=== PATIENT | male | born 1965 | race Caucasian/White ===

== ENCOUNTER 2016-06-02 11:37 | Day surgery (SDC) | payer MEDICARE ==
[~2016-06-02] VITALS: Ht 177.8 cm; Wt 93.0 kg
[~2016-06-02 11:37] MED LIST: 0.9% Sodium Chloride 1,000 ML IV SCH; ASPI-973 PO; ERGO2000 PO; LEVO100T45 PO; LIT300 PO; LITH600C PO; LOSA1TAB70 PO; MULT-666 PO; OMEP40CA36 PO; Sodium Chloride LOK Flush 10 mL Syringe IV PRN; fentaNYL-PF 50 mCg/mL 2 mL Inj IVPUSH PRN
[2016-06-02 12:33] VITALS: BP 133/93; PULSE 48; RESP 16; O2SAT 98
[2016-06-02] MEDS ORDERED: AMLO5TAB2 PO (12:43)
[2016-06-02] MEDS: 0.9% Sodium Chloride 1,000 ML IV SCH ×2 (13:09→13:17)
--- NOTE | 2016-06-02 13:25 | PCM.ENDCOL ---
Colonoscopy Date of Service: Jun 02, 2016 Physician Vincent Tran MD Pre Procedure Diagnosis: Screening Post Procedure Dx & Findings: Polyp hemorrhoids poor prep Procedure Colonoscopy PROCEDURE IN DETAIL: Prep poor prep After unremarkable rectal examination the Olympus video colonoscope was inserted patient's anal canal and was advanced to cecum. Landmarks were identified including the ileocecal valve and appendiceal orifice. Scope was withdrawn systematically. Visualized colonic mucosa showed healthy shiny mucosa with normal healthy-appearing vasculature. In the rectum there was a 3 mm polyp which appeared to be adenomatous. This was resected completely using cold snare. In the rectum retroflexion was done which showed hemorrhoids. Anal canal was inspected carefully on the way out and hemorrhoids noted. Impression Polyp 1 status post complete removal Poor prep Hemorrhoids Recommendation Repeat colonoscopy 3-6 months with 2 day prep and shepherd prep. He did not split the prep. Presedation Assessment Risks and Benefits Informed consent was obtained from the patient after all risks and benefits including but not limited to drug reaction, infection, pain, bleeding, perforation, as well as alternatives were discussed. Patient monitoring Continuous pulse oximetry, cardiac monitoring, blood pressure monitoring, IV access, and oxygen at 2L per nasal cannula. Periprocedural Fentanyl: Fentanyl 75mcg Incrementally Midazolam: Midazolam 3mg Incrementally Complications There were no periprocedural complications identified. Post Procedure Plan Post Procedure Recommendations 1. Restrict activities today. 2. Resume normal activities in the morning. 3. Resume medications. 4. Patient informed of normal post procedure side effects as bloating, drowsiness, blood streaking in the stool. 5. average risk CRCS. If colon polyps come back as: -Hyperplastic- can repeat colonoscopy in 10 years -Tubular adenoma- repeat colonoscopy in 5 years -Tubulovillous/villous adenoma- repeat colonoscopy in 3 years -If any dysplasia- return to clinic as soon as possible 6. Please don't hesitate to call me with any questions. Vincent Tran MD Jun 02, 2016 13:25
[2016-06-02 13:26] VITALS: BP 120/84; PULSE 66; RESP 12; O2SAT 97
[2016-06-02 13:39] VITALS: BP 131/74; PULSE 58; RESP 12; O2SAT 95
[2016-06-02 13:49] VITALS: BP 129/80; PULSE 64; RESP 14; O2SAT 96
--- NOTE | 2016-06-05 10:47 | PATH ---
SURGICAL PATHOLOGY Attending Physician:Vincent Tran M.D. CASE STATUS: Signed Out PATIENT NAME: KELLI YOON PID: [id number] : 1965 DATE COLLECTED:06/02/2016 19:35 SPECIMEN: Rectum, Biopsy CLINICAL HISTORY: 1). RECTAL POLYP FINAL DIAGNOSIS: 1.RECTAL POLYP: TUBULAR ADENOMA. ICD10 CODE D12.8 GROSS DESCRIPTION: The specimen is received in one formalin filled container labeled with the patient's name, sublabeled "rectal polyp" and consists of a 0.4 x 0.3 x 0.3 CM portion of tissue which is entirely submitted in one cassette. 06/02/2016 DAC MICRO DESCRIPTION: See diagnosis. ICD-9 CODES: CPT CODES: 1: 97247 Electronically Signed Out Piotr Prajapati MD [facility] Pathology [facility] [address], [place] [address] Technical component performed at [facility], [address] [place] [address] Ave[address], [place], [address]
== END 2016-06-02 23:59 | disposition home or self-care (01) ==
LOC: END 11:37
PROVIDERS: ATTEND Internal Medicine
DX: Z12.11 Encounter for screening for malignant neoplasm of colon (principal); D12.8 Benign neoplasm of rectum; K64.9 Unspecified hemorrhoids; I10 Essential (primary) hypertension; E78.5 Hyperlipidemia, unspecified; F30.9 Manic episode, unspecified; E03.9 Hypothyroidism, unspecified; E55.9 Vitamin D deficiency, unspecified; R07.89 Other chest pain; K21.9 Gastro-esophageal reflux disease without esophagitis; R06.83 Snoring; R71.8 Other abnormality of red blood cells; Z79.82 Long term (current) use of aspirin; Z79.899 Other long term (current) drug therapy
CPT/HCPCS: 45385; G0500; J7030

== ENCOUNTER → 2016-10-09 | Day surgery (SDC) | payer MEDICARE ==
[~2016-10-09] VITALS: Ht 177.8 cm; Wt 90.7 kg
[~2016-10-09] MED LIST changes: +AMLO5TAB2 PO; +CHOL200047 PO; -ERGO2000 PO; +NAPR250T PO; -OMEP40CA36 PO; +VIT1TABL83 PO
[2016-10-09 12:25] VITALS: BP 123/69; PULSE 61; RESP 12; O2SAT 97
--- NOTE | 2016-10-09 13:35 | PCM.ENDCOL ---
Colonoscopy Date of Service: Oct 09, 2016 Physician Vincent Tran MD Pre Procedure Diagnosis: History of polyps Post Procedure Dx & Findings: Colon polyp hemorrhoids Procedure Colonoscopy PROCEDURE IN DETAIL: Prep fair Withdrawal time 16 minutes After unremarkable rectal examination the Olympus video colonoscope was inserted patient's anal canal and was advanced to cecum. Landmarks were identified including the ileocecal valve and appendiceal orifice. Scope was withdrawn systematically. Visualized colonic mucosa showed healthy shiny mucosa with normal healthy-appearing vasculature. In the rectum there was a 1 mm polyp which was removed completely using cold forceps. In the rectum retroflexion was done which showed hemorrhoids. Anal canal was inspected carefully on the way out and hemorrhoids noted. Impression Polyp 1 status post complete removal Fair prep Hemorrhoids Recommendation Repeat colonoscopy in 2 years. 2 weeks of low residual diet 2 days of clear liquid diet and shepherd prep Presedation Assessment Risks and Benefits Informed consent was obtained from the patient after all risks and benefits including but not limited to drug reaction, infection, pain, bleeding, perforation, as well as alternatives were discussed. Patient monitoring Continuous pulse oximetry, cardiac monitoring, blood pressure monitoring, IV access, and oxygen at 2L per nasal cannula. Periprocedural Fentanyl: Fentanyl 100mcg Incrementally Midazolam: Midazolam 5mg Incrementally Complications There were no periprocedural complications identified. Post Procedure Plan Post Procedure Recommendations 1. Restrict activities today. 2. Resume normal activities in the morning. 3. Resume medications. 4. Patient informed of normal post procedure side effects as bloating, drowsiness, blood streaking in the stool. 5. average risk CRCS. If colon polyps come back as: -Hyperplastic- can repeat colonoscopy in 10 years -Tubular adenoma- repeat colonoscopy in 5 years -Tubulovillous/villous adenoma- repeat colonoscopy in 3 years -If any dysplasia- return to clinic as soon as possible 6. Please don't hesitate to call me with any questions. Vincent Tran MD Oct 09, 2016 13:35
[2016-10-09 13:37] VITALS: BP 114/73; PULSE 55; RESP 16; O2SAT 98
[2016-10-09 13:47] VITALS: BP 112/69; PULSE 62; RESP 16; O2SAT 98
[2016-10-09 13:57] VITALS: BP 129/90; PULSE 59; RESP 16; O2SAT 98
--- NOTE | 2016-10-12 18:35 | PATH ---
SURGICAL PATHOLOGY Attending Physician:Vincent Tran M.D. CASE STATUS: Signed Out PATIENT NAME: KELLI YOON PID: [id number] : 1965 DATE COLLECTED:10/09/2016 00:00 SPECIMEN: Rectum, Biopsy CLINICAL HISTORY: 1). RECTAL POLYP FINAL DIAGNOSIS: 1.RECTAL POLYP, BIOPSY: TUBULAR ADENOMA. ICD10 D12.8 GROSS DESCRIPTION: The specimen is received in one formalin filled container labeled with the patient's name, sublabeled "rectal polyp" and consists of a 0.2 x 0.2 x 0.2 CM portion of tissue which is entirely submitted in one cassette. 10/10/2016DC MICRO DESCRIPTION: See diagnosis. ICD-9 CODES: CPT CODES: 1: 77658 Electronically Signed Out Aniceto Bhandari MD, Ph.D. [facility] Pathology [facility] [address], [place] [address] Technical component performed at [facility], [address] [place] [address] Ave[address], [place], [address]
== END | disposition home or self-care (01) ==
LOC: END 00:26
PROVIDERS: ATTEND Internal Medicine
DX: Z12.11 Encounter for screening for malignant neoplasm of colon (principal); D12.8 Benign neoplasm of rectum; K64.9 Unspecified hemorrhoids; I10 Essential (primary) hypertension; E03.9 Hypothyroidism, unspecified; E78.5 Hyperlipidemia, unspecified; F31.9 Bipolar disorder, unspecified; K21.9 Gastro-esophageal reflux disease without esophagitis; Z79.82 Long term (current) use of aspirin
CPT/HCPCS: 45380; 99153; G0500; J2250; J3010; J7030